=== PATIENT | female | born 2000 | race American Indian/Alaskan Native ===

== ENCOUNTER 2020-09-01 12:50 | Outpatient (CLI) | payer MEDICAID ==
[2020-09-01 14:18] VITALS: BP 113/54
[2020-09-01] MEDS ORDERED: LACTATED RINGERS 500 ML IV ONE (15:21)
== END 2020-09-01 14:31 | disposition home or self-care (01) ==
LOC: TRG 12:50 → APU 12:50 → TRG 14:31
PROVIDERS: ATTEND Obstetrics & Gynecology
DX: O46.8X2 Other antepartum hemorrhage, second trimester (principal); O26.892 Other specified pregnancy related conditions, second trimester; R51.9 Headache, unspecified; Z3A.23 23 weeks gestation of pregnancy
CPT/HCPCS: 59025